=== PATIENT | male | born 1955 | race Caucasian/White ===

== ENCOUNTER 2018-08-17 03:54 | Emergency (ER) | payer MEDICARE, BC ==
[2018-08-17 04:13] VITALS: BP 133/80
[2018-08-17] MEDS ORDERED: HYDROmorphone 1 MG/ML Syringe IM ONE (04:56)
--- NOTE | 2018-08-17 05:01 | EDM.PDOC ---
ED HPI GENERAL MEDICAL PROBLEM - General Chief Complaint: Back Pain or Injury Stated Complaint: BACK PAIN Time Seen by Provider: 08/17/18 04:48 Source of Information: Reports: Patient, Family History Limitations: Reports: No Limitations - History of Present Illness INITIAL COMMENTS - FREE TEXT/NARRATIVE: 63-year-old gentleman presents emergency department day complaint of back pain, he has no loss of bowel or bladder no fevers, he has been dealing with his back pain for approximately one month does have a history of spinal fusion he has followed up with the senior it specialist that work time initially has had MRI recently completed as well as CT scan and plain films which per his statement do not reveal the cause of his back pain it is progressively getting worse he is currently being treated with Flexeril and oxycodone. Recommendations from Karrie Meredith were admission to the hospital for back pain with physical therapy. He declined this was 3 days prior he presents the emergency department today with complaint of pain that is so severe he is unable to function Lower Back Pain Score (Numeric/FACES): 10 - Related Data Allergies Allergy/AdvReac Type Severity Reaction Status Date / Time microfoam tape Allergy Rash Uncoded 08/17/18 04:10 Home Meds: Home Meds metFORMIN [Glucophage] 500 mg PO BIDMEALS 04/08/16 [History] Aspirin 81 mg PO Q48H 12/04/16 [History] Doxycycline [Doxycycline Hyclate] 100 mg PO DAILY 08/17/18 [History] Past Medical History HEENT History: Reports: Impaired Vision Cardiovascular History: Reports: SOB on Exertion Respiratory History: Reports: Intubation, Previous, Sleep Apnea, Other (See Below) Other Respiratory History: stopped breathing with surgery PAR Gastrointestinal History: Reports: Colon Polyp, Other (See Below) Other Gastrointestinal History: inguinal right surgery Genitourinary History: Reports: Renal Calculus Musculoskeletal History: Reports: Arthritis, Back Pain, Chronic, Fracture, Osteoarthritis, Other (See Below) Other Musculoskeletal History: bilat knee pain Neurological History: Reports: None Endocrine/Metabolic History: Reports: Diabetes, Type II, Obesity/BMI 30+, Other (See Below) Other Endocrine/Metabolic History: B lower leg venous stasis dermatitis Hematologic History: Reports: Anesthesia Reaction Dermatologic History: Reports: Venous Stasis Dermatitis, Other (See Below) Other Dermatologic History: wound vac abd after back sugery - Infectious Disease History Infectious Disease History: Reports: Chicken Pox - Past Surgical History HEENT Surgical History: Reports: Other (See Below) Other HEENT Surgeries/Procedures: ocular rosazia Respiratory Surgical History: Reports: Other (See Below) GI Surgical History: Reports: Appendectomy, Colonoscopy, Hernia, Inguinal, Polypectomy Male Surgical History: Reports: Renal Calculus Neurological Surgical History: Reports: Lumbar Spine, Spinal Fusion Musculoskeletal Surgical History: Reports: Arthroscopic Knee, Knee Replacement, Shoulder Surgery Social & Family History - Family History Family Medical History: Noncontributory - Tobacco Use Smoking Status *Q: Never Smoker Second Hand Smoke Exposure: No - Caffeine Use Caffeine Use: Reports: None - Recreational Drug Use Recreational Drug Use: No ED ROS GENERAL - Review of Systems Review Of Systems: See Below Constitutional: Reports: No Symptoms Respiratory: Reports: No Symptoms Cardiovascular: Reports: No Symptoms GI/Abdominal: Reports: No Symptoms : Reports: No Symptoms Musculoskeletal: Reports: Back Pain Skin: Reports: No Symptoms Neurological: Reports: No Symptoms ED EXAM,LOWER BACK PAIN/INJURY - Physical Exam Exam: See Below Exam Limited By: No Limitations General Appearance: Alert, WD/WN, No Apparent Distress Respiratory/Chest: No Respiratory Distress Course - Vital Signs Last Recorded V/S: Last Vital Signs Temp 99 F 08/17/18 04:08 Pulse 88 08/17/18 04:08 Resp 16 08/17/18 04:08 BP 133/80 08/17/18 04:08 Pulse Ox 94 L 08/17/18 04:08 - Orders/Labs/Meds Orders: Active Orders 24 hr Category Date Time Status HYDROmorphone [Dilaudid] Med 08/17/18 04:56 Once 1 mg IM ONETIME ONE Departure - Departure Time of Disposition: 05:00 Disposition: Home, Self-Care 01 Condition: Poor Clinical Impression: History of lumbar fusion Back pain Qualifiers: Back pain location: low back pain Chronicity: unspecified Back pain laterality : left Sciatica presence: without sciatica Qualified Code(s): M54.5 - Low back pain - Discharge Information Referrals: Marco Antonio Nicolas Sr, MD [Primary Care Provider] - Additional Instructions: Please contact Dr. Nicolas when his clinic opens this morning for further consultation - My Orders Last 24 Hours: My Active Orders 08/17/18 04:56 HYDROmorphone [Dilaudid] 1 mg IM ONETIME ONE - Assessment/Plan Last 24 Hours: My Active Orders 08/17/18 04:56 HYDROmorphone [Dilaudid] 1 mg IM ONETIME ONE Plan: Assessment Acuity = acute on chronic Site and laterality = low back pain Etiology = unclear etiology Manifestations = none Location of injury = Home Lab values = none Plan I did discuss with him options which included admission for the same back pain and physical therapy versus pain medication now he can follow-up with his primary care in a couple hours and decide another option. He elected to try Dilaudid 1 mg IM [address] Nicolas when his clinic opens at 8 AM for an appointment this morning This note was dictated using [employer] voice recognition software please call with any questions on syntax or grammar.
== END 2018-08-17 05:22 | disposition home or self-care (01) ==
LOC: JP.ED 03:54
DX: M54.5 Low back pain (principal); G89.29 Other chronic pain; E11.9 Type 2 diabetes mellitus without complications; Z79.84 Long term (current) use of oral hypoglycemic drugs; Z91.09 Other allergy status, other than to drugs and biological substances
CPT/HCPCS: 96372; 99283; J1170

== ENCOUNTER 2018-10-06 13:47 | Outpatient (CLI) | payer MEDICARE, BC ==
[2018-10-06] MEDS ORDERED: methylPREDNISolone Acetate 40 MG/ML SDV ONE (14:10)
[2018-10-06] MEDS ORDERED: Bupivacaine 0.5% 30 ML SDV ONE (14:10)
[2018-10-06 14:32] VITALS: BP 154/101; PULSE 87
--- NOTE | 2018-10-06 14:56 | ANES ---
DATE OF SERVICE: 10/06/2018 INDICATION: Mr. Casillas is a 63-year-old male patient referred to the Pain Clinic to us by Dr. Nicolas. He is here today for his trigger points. Please see the orders for the patient's preprocedure diagnosis as well as ICD-10 code. The risks and benefits of procedure were explained to the patient, and he wished to proceed with trigger point injections. TECHNIQUE: I did find 20 noticeable lumbosacral trigger points. I injected each of these with 1 to 2 mL of 0.5% Sensorcaine. I did inject more than 3 muscle groups. He tolerated the procedure very nicely. His vital signs remained stable throughout the procedure and nurse was with me for the entire procedure. There were no anesthesia complications noted. He is going to return in 2 weeks for trigger point injections. He was discharged from the [facility] per protocol. Jonathan Villarreal CRNA /[id number]
== END 2018-10-06 14:34 | disposition home or self-care (01) ==
LOC: JP.PAIN 13:47
PROVIDERS: ATTEND Internal Medicine
DX: M60.9 Myositis, unspecified (principal)
CPT/HCPCS: 20553; J3490; J1030

== ENCOUNTER 2019-06-30 06:26 | Day surgery (SDC) | payer MEDICARE, BC ==
[2019-06-30] MEDS ORDERED: Sodium Chloride 0.9% 1,000 ML IV SCH (07:00)
[2019-06-30] MEDS ORDERED: Midazolam 1 MG/ML 2 ML SDV ONE (07:24)
[2019-06-30] MEDS ORDERED: fentaNYL 100 MCG/2 ML SDV ONE (07:24)
[2019-06-30] MEDS ORDERED: Propofol 200 MG/20 ML SDV ONE (07:24)
[2019-06-30 09:09] VITALS: BP 128/77; PULSE 70
--- NOTE | 2019-06-30 14:56 | PROC ---
DATE OF PROCEDURE: 06/30/2019 SURGEON: Marco Antonio Nicolas MD INDICATIONS: Malcolm is a 64-year-old male, who comes in for a colonoscopy as he has had history of polyps in the past. The risks and benefits were explained for a colonoscopy and was taken to the OR. ANESTHESIA: Anesthesia was given by nurse community education coordinator. During the procedure, we used 2 mg of Versed, 2 mcg of fentanyl, and 200 mg of propofol. PROCEDURE IN DETAIL: With a gloved finger, the Olympus 180L scope was used and placed into the rectum and advanced under direct vision. We did get to the cecum with no difficulty. Upon retraction of the tube, noted no lesions, ulceration, or abnormality until we got into 20 cm, then noted multiple small polyps. Multiple biopsies were done. There was no bleeding noted from the areas and the polyps were very small 2 to 3 mm in size. The tube was removed. The patient tolerated the procedure well. PREOPERATIVE DIAGNOSIS: History of polyps. POSTOPERATIVE DIAGNOSIS: Multiple polyps at 20 cm to the rectum. Marco Antonio Nicolas MD /[id number]
== END 2019-06-30 09:10 | disposition home or self-care (01) ==
LOC: JP.SDS 06:26
PROVIDERS: ATTEND Internal Medicine
DX: Z12.11 Encounter for screening for malignant neoplasm of colon (principal); K63.5 Polyp of colon; I10 Essential (primary) hypertension; G47.33 Obstructive sleep apnea (adult) (pediatric); Z86.010 Personal history of colon polyps
CPT/HCPCS: 45380; J2250; J2704; J3010; J7030; 88305

== ENCOUNTER 2021-04-12 01:23 | Emergency (ER) | payer MEDICARE, BC ==
[2021-04-12] MEDS ORDERED: Ketorolac 30 MG/ML SDV IVPUSH ONE (01:52)
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
[2021-04-12] MEDS ORDERED: Sodium Chloride 0.9% 1,000 ML IV SCH (03:15)
[2021-04-12] MEDS ORDERED: Sodium Chloride 0.9% 100 ML IV STA (03:31)
[2021-04-12] MEDS ORDERED: Iopamidol 755 Mg/ML 100 ML Bottle IV STA (03:31)
--- NOTE | 2021-04-12 04:55 | CRLCT ---
For Patients: As a result of the Century Cures Act, medical imaging exams and procedure reports are released immediately into your electronic medical record. You may view this report before your referring provider. If you have questions, please contact your health care provider. INDICATION: Chest pain TECHNIQUE: CT chest PE was acquired with 100 cc Isovue 370 intravenous contrast. COMPARISON: Chest CT 12/12/2013 FINDINGS: Heart and vasculature: Contrast opacification of the pulmonary arterial tree is adequate. No sign of pulmonary embolism. No pericardial effusion. Coronary atherosclerosis. Thoracic aorta is normal in caliber. Stent within the proximal left subclavian artery. Lungs and pleural: Small left pleural effusion. Discoid atelectasis within the left upper lobe and lingula. Some dependent consolidation within the left lower lobe. Discoid atelectasis in the right middle lobe. Lymph nodes/mediastinum: No mediastinal, hilar, or axillary adenopathy. Chest wall: No masses. Upper abdomen: Right adrenal nodule measuring 12 millimeters. This is stable dating back to the 2013 exam. Bones: Old sternal fracture. IMPRESSION: 1. No evidence pulmonary embolus. 2. Small left pleural effusion with some adjacent consolidation. Favor atelectasis although left lower lobe pneumonia is possible. 3. Atherosclerosis including coronary atherosclerosis. Left subclavian artery stent. Please note that all CT scans at this facility use dose modulation, iterative reconstruction, and/or weight-based dosing when appropriate to reduce radiation dose to as low as reasonably achievable. Dictated by Rashard Romero MD @ 04/12/2021 4:53:16 AM (Electronically Signed)
[2021-04-12 06:13] VITALS: BP 116/66; PULSE 84
--- NOTE | 2021-04-12 09:17 | CR ---
CHEST: Portable 04/12/2021 at 2:11 AM CLINICAL HISTORY:Chest pain COMPARISON:03/13/2016 FINDINGS: Heart is enlarged. Pulmonary vascularity is normal. There are atherosclerotic changes in the aorta.. There is a left pleural effusion. There is patchy bilateral lower lobe airspace disease which may be atelectasis or infiltrate. This is greater on the left IMPRESSION: Left pleural effusion Bibasal airspace disease may represent some atelectasis or infiltrate
== END 2021-04-12 07:06 | disposition home or self-care (01) ==
LOC: JP.ED 01:23
DX: I26.99 Other pulmonary embolism without acute cor pulmonale (principal); E11.9 Type 2 diabetes mellitus without complications; E66.9 Obesity, unspecified; Z68.39 Body mass index [BMI] 39.0-39.9, adult; Z79.84 Long term (current) use of oral hypoglycemic drugs; Z91.048 Other nonmedicinal substance allergy status; Z79.899 Other long term (current) drug therapy; Z87.891 Personal history of nicotine dependence
CPT/HCPCS: 36415; 71045; 71275; 80053; 84484; 85025; 85379; 93005; 96374; 99285; J1885; J7030; Q9967

== ENCOUNTER 2024-03-08 03:48 | Emergency (ER) | payer MEDICARE, BC ==
[2024-03-08 04:09] LABS: BASOPHILS ABSOLUTE AUTO 0.07 K/uL (0.00-0.10); BASOPHILS PERCENT AUTO 0.8 % (0.1-1.3); EOSINOPHILS ABSOLUTE AUTO 0.27 K/uL (0.00-0.40); EOSINOPHILS PERCENT AUTO 3.2 % (0.0-5.4); HEMATOCRIT 46.3 % (38.4-49.7); HEMOGLOBIN 15.7 g/dL (12.9-16.9); IMMATURE GRAN ABSOLUTE AUTO 0.04 K/uL (0.00-0.23); IMMATURE GRAN PERCENT AUTO 0.5 % (0.0-0.7); LYMPHOCYTES ABSOLUTE AUTO 2.76 K/uL (0.8-3.3); LYMPHOCYTES PERCENT AUTO 32.5 % (11.4-47.7); MEAN CORPUSCULAR HEMOGLOBIN 31.3 pg (31.6-35.5); MEAN CORPUSCULAR HGB CONC 33.9 g/dL (31.6-35.5); MEAN CORPUSCULAR VOLUME 92.2 fL (81.4-99.0); MONOCYTES ABSOLUTE AUTO 0.92 K/uL (0.20-0.90); MONOCYTES PERCENT AUTO 10.8 % (3.3-12.6); NEUTROPHILS ABSOLUTE AUTO 4.43 K/uL (1.0-7.6); NEUTROPHILS PERCENT AUTO 52.2 % (40.0-78.1); PLATELET COUNT,PLT 276 K/uL (130-375); RED BLOOD CELL COUNT 5.02 M/uL (4.14-5.76); WHITE BLOOD CELL COUNT,WBC 8.5 K/uL (3.2-11.0)
[2024-03-08 04:32] LABS: ANION GAP 9.6 mmol/L (5.0-14.0); BLOOD UREA NITROGEN,BUN 18 mg/dL (7-18); CARBON DIOXIDE,CO2 27 mmol/L (21-32); CHLORIDE,CL 104 mmol/L (100-108); CREATININE 1.1 mg/dL (0.8-1.3); ESTIMATED GFR 72 mL/min (>60); GLUCOSE RANDOM 146 mg/dL (74-106); POTASSIUM,K 4.2 mmol/L (3.6-5.2); SODIUM,NA 141 mmol/L (140-148); TROPONIN I HIGH SENSITIVITY 6.1 pg/mL (<=60.3)
[2024-03-08] MEDS ORDERED: Magnesium Oxide 400 MG Tab PO ONE (05:03)
[2024-03-08] MEDS: Gabapentin 100 MG Cap PO ONE (05:51)
[2024-03-08 06:23] VITALS: BP 109/58; PULSE 65
== END 2024-03-08 06:20 | disposition home or self-care (01) ==
LOC: JP.ED 03:48
DX: G54.2 Cervical root disorders, not elsewhere classified (principal); E78.00 Pure hypercholesterolemia, unspecified; I10 Essential (primary) hypertension; M19.90 Unspecified osteoarthritis, unspecified site; E11.9 Type 2 diabetes mellitus without complications; Z68.35 Body mass index [BMI] 35.0-35.9, adult; E66.9 Obesity, unspecified; Z79.84 Long term (current) use of oral hypoglycemic drugs; Z79.82 Long term (current) use of aspirin; Z79.899 Other long term (current) drug therapy; Z88.8 Allergy status to other drugs, medicaments and biological substances; Z91.048 Other nonmedicinal substance allergy status
CPT/HCPCS: 36415; 72125; 76377; 80048; 84484; 85025; 93005; 99284; A9270; 93010

== ENCOUNTER 2024-04-11 06:07 | Day surgery (SDC) | payer MEDICARE, BC ==
[2024-04-11 06:27] LABS: HEMATOCRIT 48.9 % (38.4-49.7); HEMOGLOBIN 16.6 g/dL (12.9-16.9); MEAN CORPUSCULAR HEMOGLOBIN 31.1 pg (31.6-35.5); MEAN CORPUSCULAR HGB CONC 33.9 g/dL (31.6-35.5); MEAN CORPUSCULAR VOLUME 91.7 fL (81.4-99.0); RED BLOOD CELL COUNT 5.33 M/uL (4.14-5.76); WHITE BLOOD CELL COUNT,WBC 7.6 K/uL (3.2-11.0)
[2024-04-11 06:42] LABS: ANION GAP 7.4 mmol/L (5.0-14.0); CALCIUM 9.3 mg/dL (8.5-10.1); CREATININE 0.9 mg/dL (0.8-1.3); EST CRCL DRUG DOSING (CG) 85.08 mL/min; POTASSIUM,K 4.4 mmol/L (3.6-5.2)
[2024-04-11] MEDS: Nozin Nasal Sanitizer NASBOTH ONE (06:50)
[2024-04-11] MEDS: Lactated Ringers 1,000 ML IV SCH (06:59)
[2024-04-11] MEDS ORDERED: fentaNYL 100 MCG/2 ML SDV ONE (07:12)
[2024-04-11] MEDS ORDERED: Propofol 200 MG/20 ML SDV ONE (07:12)
[2024-04-11] MEDS ORDERED: Midazolam 1 MG/ML 2 ML SDV ONE (07:12)
[2024-04-11] MEDS ORDERED: Lidocaine 0.5% 50 ML SDV ONE (07:18)
[2024-04-11] MEDS: ceFAZolin 1 GM in Premix Bag 1 BAG IV ONE (07:50)
[2024-04-11] MEDS: Bupivacaine 0.5% 30 ML SDV ONE (08:15)
[2024-04-11] MEDS ORDERED: Acetaminophen/HYDROcodone 325-5 MG Tab PO PRN (09:02)
[2024-04-11 09:29] VITALS: BP 136/73; PULSE 73
== END 2024-04-11 09:30 | disposition home or self-care (01) ==
LOC: JP.SDS 06:07
PROVIDERS: ATTEND Specialist
DX: G56.02 Carpal tunnel syndrome, left upper limb (principal); I10 Essential (primary) hypertension; E11.9 Type 2 diabetes mellitus without complications; E66.9 Obesity, unspecified
CPT/HCPCS: 01810; 36415; 64721; 80048; 85027; 93005; 93010; A9270; J0665; J0689; J2250; J2704; J3010; J7120

== ENCOUNTER → 2024-05-30 | Day surgery (SDC) | payer MEDICARE, BC ==
[~2024-05-30] MED LIST: Dexamethasone 4 MG/ML SDV ONE; Glycopyrrolate 0.2 MG/ML 5 ML MDV ONE; Lactated Ringers 1,000 ML ONE; Neostigmine Methylsulfate 10 MG/10 ML MDV ONE; Ondansetron 4 MG/2 ML SDV ONE; Propofol 200 MG/20 ML SDV ONE; Rocuronium 50 MG/5 ML Vial ONE; Succinylcholine 200 MG/10 ML MDV ONE; fentaNYL 100 MCG/2 ML SDV ONE; fentaNYL 250 MCG/5 ML SDV ONE
[2024-05-30 06:35] LABS: HEMOGLOBIN 15.7 g/dL (12.9-16.9); MEAN CORPUSCULAR HEMOGLOBIN 30.7 pg (31.6-35.5); MEAN CORPUSCULAR HGB CONC 34.1 g/dL (31.6-35.5); RED BLOOD CELL COUNT 5.11 M/uL (4.14-5.76); WHITE BLOOD CELL COUNT,WBC 9.2 K/uL (3.2-11.0)
[2024-05-30] MEDS: Nozin Nasal Sanitizer NASBOTH ONE (06:44)
[2024-05-30 06:50] LABS: ANION GAP 7.5 mmol/L (5.0-14.0); CALCIUM 8.5 mg/dL (8.5-10.1); EST CRCL DRUG DOSING (CG) 76.57 mL/min; POTASSIUM,K 4.2 mmol/L (3.6-5.2)
[2024-05-30] MEDS: Lactated Ringers 1,000 ML IV SCH (07:01)
[2024-05-30] MEDS: ceFAZolin 2 GM in Premix Bag 1 BAG IV ONE (07:45)
[2024-05-30] MEDS: Bupivacaine 0.5% 30 ML SDV ONE (08:35)
[2024-05-30 10:46] VITALS: BP 124/70; PULSE 69
== END ==
LOC: JP.SDS 06:11
PROVIDERS: ATTEND Specialist
DX: G56.22 Lesion of ulnar nerve, left upper limb (principal); M65.822 Other synovitis and tenosynovitis, left upper arm; M19.022 Primary osteoarthritis, left elbow; I10 Essential (primary) hypertension; E11.9 Type 2 diabetes mellitus without complications
CPT/HCPCS: 01740; 29834; 29835; 36415; 64718; 80048; 85027; A9270; C1713; J0330; J0665; J0690; J1100; J1596; J2405; J2704; J2710; J3010; J7120; J3490

== ENCOUNTER 2024-07-04 07:28 | Day surgery (SDC) | payer MEDICARE, BC ==
[~2024-07-04 07:28] MED LIST changes: -Dexamethasone 4 MG/ML SDV ONE; -Glycopyrrolate 0.2 MG/ML 5 ML MDV ONE; -Lactated Ringers 1,000 ML ONE; +Lidocaine 0.5% 50 ML SDV ONE; +Midazolam 1 MG/ML 2 ML SDV ONE; -Neostigmine Methylsulfate 10 MG/10 ML MDV ONE; -Ondansetron 4 MG/2 ML SDV ONE; -Rocuronium 50 MG/5 ML Vial ONE; -Succinylcholine 200 MG/10 ML MDV ONE; -fentaNYL 250 MCG/5 ML SDV ONE
[2024-07-04 07:59] LABS: HEMATOCRIT 43.7 % (38.4-49.7); HEMOGLOBIN 14.5 g/dL (12.9-16.9); MEAN CORPUSCULAR HEMOGLOBIN 30.1 pg (31.6-35.5); MEAN CORPUSCULAR HGB CONC 33.2 g/dL (31.6-35.5); MEAN CORPUSCULAR VOLUME 90.9 fL (81.4-99.0); RED BLOOD CELL COUNT 4.81 M/uL (4.14-5.76); WHITE BLOOD CELL COUNT,WBC 8.9 K/uL (3.2-11.0)
[2024-07-04] MEDS: Nozin Nasal Sanitizer NASBOTH ONE (08:06)
[2024-07-04 08:14] LABS: ANION GAP 5.5 mmol/L (5.0-14.0); CALCIUM 9.3 mg/dL (8.5-10.1); EST CRCL DRUG DOSING (CG) 76.57 mL/min; POTASSIUM,K 4.6 mmol/L (3.6-5.2)
[2024-07-04] MEDS ORDERED: ceFAZolin 1 GM in Sodium Chloride 0.9% 50 ML IV ONE (08:15)
[2024-07-04] MEDS: Lactated Ringers 1,000 ML IV SCH (08:15)
[2024-07-04] MEDS: ceFAZolin 1 GM in Premix Bag 1 BAG IV ONE (08:35)
[2024-07-04] MEDS ORDERED: Propofol 200 MG/20 ML SDV ONE ×2 (08:52→09:06)
[2024-07-04] MEDS: Bupivacaine 0.5% 30 ML SDV ONE (09:43)
[2024-07-04 10:29] VITALS: BP 109/68; PULSE 76
== END 2024-07-04 10:35 | disposition home or self-care (01) ==
LOC: JP.SDS 07:28
PROVIDERS: ATTEND Specialist
DX: G56.01 Carpal tunnel syndrome, right upper limb (principal); G56.21 Lesion of ulnar nerve, right upper limb; I10 Essential (primary) hypertension; E78.5 Hyperlipidemia, unspecified; E11.9 Type 2 diabetes mellitus without complications
CPT/HCPCS: 36415; 64718; 64721; 80048; 85027; A9270; J0665; J0689; J2250; J2704; J3010; J7120; 01810-QZ

== ENCOUNTER 2025-02-06 00:18 | Emergency (ER) | payer MEDICARE, BC ==
[2025-02-06 01:16] LABS: BASOPHILS ABSOLUTE AUTO 0.04 K/uL (0.00-0.10); BASOPHILS PERCENT AUTO 0.3 % (0.1-1.3); EOSINOPHILS ABSOLUTE AUTO 0.33 K/uL (0.00-0.40); EOSINOPHILS PERCENT AUTO 2.6 % (0.0-5.4); IMMATURE GRAN ABSOLUTE AUTO 0.13 K/uL (0.00-0.23); IMMATURE GRAN PERCENT AUTO 1.0 % (0.0-0.7); LYMPHOCYTES ABSOLUTE AUTO 2.16 K/uL (0.8-3.3); LYMPHOCYTES PERCENT AUTO 16.7 % (11.4-47.7); MONOCYTES ABSOLUTE AUTO 1.46 K/uL (0.20-0.90); MONOCYTES PERCENT AUTO 11.3 % (3.3-12.6); NEUTROPHILS ABSOLUTE AUTO 8.82 K/uL (1.0-7.6); NEUTROPHILS PERCENT AUTO 68.1 % (40.0-78.1); PLATELET COUNT,PLT 385 K/uL (130-375); RED BLOOD CELL COUNT 5.00 M/uL (4.14-5.76); WHITE BLOOD CELL COUNT,WBC 12.9 K/uL (3.2-11.0)
[2025-02-06 01:20] LABS: ALANINE AMINOTRANSFERASE,ALT 25 U/L (12-78); ASPARTATE AMNIOTRANSFERASE,AST 34 U/L (15-37); BILIRUBIN TOTAL 0.8 mg/dL (0.2-1.0); CHLORIDE,CL 107 mmol/L (100-108); PROTEIN TOTAL,TP 7.3 g/dL (6.4-8.2)
[2025-02-06 01:31] LABS: A/G RATIO 0.7 (1.2-2.2); BLOOD UREA NITROGEN,BUN 26 mg/dL (7-18); CARBON DIOXIDE,CO2 22 mmol/L (21-32); CREATININE 0.9 mg/dL (0.8-1.3); EST CRCL DRUG DOSING (CG) 83.85 mL/min; ESTIMATED GFR 91 mL/min (>60); GLUCOSE RANDOM 148 mg/dL (74-106); POTASSIUM,K 3.3 mmol/L (3.6-5.2); SODIUM,NA 141 mmol/L (140-148)
[2025-02-06 03:14] VITALS: BP 114/69; PULSE 79
== END 2025-02-06 03:13 | disposition home or self-care (01) ==
LOC: JP.ED 00:18
DX: K52.9 Noninfective gastroenteritis and colitis, unspecified (principal); I10 Essential (primary) hypertension; E11.9 Type 2 diabetes mellitus without complications; E66.9 Obesity, unspecified; Z95.5 Presence of coronary angioplasty implant and graft; Z90.49 Acquired absence of other specified parts of digestive tract; Z87.891 Personal history of nicotine dependence; Z88.8 Allergy status to other drugs, medicaments and biological substances; Z91.048 Other nonmedicinal substance allergy status; Z79.82 Long term (current) use of aspirin; Z79.899 Other long term (current) drug therapy; Z79.84 Long term (current) use of oral hypoglycemic drugs
CPT/HCPCS: 36415; 80053; 83735; 85025; 86140; 96360; 99284; A9270; J7030